=== PATIENT | female | born 2000 | race Caucasian/White ===

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

== ENCOUNTER 2023-04-20 19:50 | Emergency (ER) | payer OTHER ==
--- OUTSIDE RECORDS SUMMARY | 2023-04-20 19:53 | XMS REPORT | Continuity of Care Document ---
Author Name Unknown Address [phone] [facility] thconnect Address [address] [phone] Care Team Providers Care Lead Applications Developer Name Role Phone LIANNE CUI Primary Care Physician Unavailab MAYURI Ashraf Attending Clinician Unavailable Oscar_Pneelope Attending Clinician Unavailable KEILY ORDOÑEZ Attending Clinician Unavailable [email or web address]_S Attending Clinician UnavailDR LIANNE [place] Attending Clinician Unavailable [phone] Attending Clinician Unavailable Oscar_Penelope Admitting Clinician Unavailable [email or web address] Admitting Clinician UnavailDR LIANNE [place] Admitting Clinician Unavailable Payers Payer Name Policy Type Policy Number Effective Date Expirati on Date Source AET[employer] - CLINIC [id number] [employer]ET[employer] - CHOICE (POS II) [id number] 2006 00:00:00 Problems Condition Name Condition Details Condition Category Status Onset Date Resolution Date Last Treatment Date Treating Clinician Comments Source Mild hyperemesi s gravidarum Mild Hyperemesi s Gravidarum Problem Active 04-12 00:00: 00 [facility] Problem Active 04-12 00:00: 00 [facility] Allergies, Adverse Reactions, Alerts Allergy Name Allergy Type Status Severity Reaction(s) Onset Date Inactive Date Treating Clinician Comments Source No Known Drug Allergie s [facility] Social History Smoking Status Start Date Stop Date Source Never Smoker [facility] Medications Ordered Medication Name Filled Medication Name Start Date Stop Date Current Medication? Ordering Clinician Indication Dosage Frequency Signature (SIG) Comments Components Source ondansetron HCl 4 mg tablet TAKE 1 TABLET BY MOUTH EVERY 6 TO 8 HOURS NEEDED FOR NAUSEA / VOMITING ondansetron HCl 4 mg tablet TAKE 1 TABLET BY MOUTH EVERY 6 TO 8 HOURS NEEDED FOR NAUSEA / VOMITING No ondansetro n HCl 4 mg tablet TAKE 1 TABLET BY MOUTH EVERY 6 TO 8 HOURS NEEDED FOR NAUSEA / VOMITING [facility] Vital Signs Vital Name Observation Time Observation Value Comments S ource BP Diastolic 2023-04-12 00:00:00 84 mm[Hg] [facility] Body Weight 2023-04-12 00:00:00 174.7 [lb_av] [facility] Systolic 2023-04-12 00:00:00 144 mm[Hg] [facility] Height 2023-04-12 00:00:00 63 [in_i] [facility] BMI (Body Mass Index) 2023-04-12 00:00:00 30.9 kg/m2 [facility] Procedures Procedure Date / Time Performed Performing Clinician Source ULTRASOUND, UTERUS REAL TIME WITH IMAGE DOCUMENTAITON, TRANSVAGINAL 2023-04-12 00:00:00 [facility] Plan of Care Planned Activity Planned Date Details Comments Source Diagnostic Test Pending 2023-04-12 00:00:00 HIV (1+2) Ab screen, serum [code = HIV (1+2) Ab screen, serum] [facility] Diagnostic Test Pending 2023-04-12 00:00:00 RPR (rapid plasma reagin), serum [code = RPR (rapid plasma reagin), serum] [facility] Diagnostic Test Pending 2023-04-12 00:00:00 HBsAg (hepatitis B surface Ag), serum [code = HBsAg (hepatitis B surface Ag), serum] [facility] Diagnostic Test Pending 2023-04-12 00:00:00 CBC w/ auto diff [code = CBC w/ auto diff] [facility] Diagnostic Test Pending 2023-04-12 00:00:00 Blood group antibody screen [Presence] in Serum or Plasma [code = 890-4] [facility] Diagnostic Test Pending 2023-04-12 00:00:00 ABO and Rh group panel - Blood [code = 24750-5] [facility] Diagnostic Test Pending 2023-04-12 00:00:00 drug screen, urine [code = drug screen, urine] [facility] Diagnostic Test Pending 2023-04-12 00:00:00 HbA1c (hemoglobin A1c), blood [code = HbA1c (hemoglobin A1c), blood] [facility] Diagnostic Test Pending 2023-04-12 00:00:00 culture, urine [code = culture, urine] [facility] Diagnostic Test Pending 2023-04-12 00:00:00 rubella Ab, titer, serum [code = rubella Ab, titer, serum] [facility] Diagnostic Test Pending 2023-04-12 00:00:00 STI panel [code = STI panel] [facility] Diagnostic Test Pending 2023-04-12 00:00:00 urinalysis, dipstick [code = urinalysis, dipstick] [facility] Diagnostic Test Pending 2023-04-12 00:00:00 pap, LB + reflex to HR HPV if ASC-U [code = pap, LB + reflex to HR HPV if ASC-U] [facility] Future Appointment 2023-04-26 11:15:00 Mayuri Moore, [address]; [address], [place] [address] [facility] Future Appointment 2023-04-26 11:00:00 Sonogram, [address]; [address], [place] [address] [facility] Instructions [facility] Encounters Start Date/Time End Date/Time Encounter Type Admission Type Attending Clinicians Care Facility Care Department Encounter ID Source 2022-07-04 08:43:31 Outpatient [facility] [id number] [facility] 2023-04-12 12:06:00 2023-04-12 12:06:00 Outpatient MAYURI JUAREZ [facility] [id number] [facility] 2023-04-12 00:00:00 2023-04-12 00:00:00 [facility] [id number] [facility] 2023-04-12 00:00:00 2023-04-12 00:00:00 Mayuri CHRISTY MooreP-BC: [address], [address], [place] [address] , Ph. [phone] [facility] [id number] [facility] 2023-03-28 00:00:00 2023-03-28 00:00:00 Outpatient Charles [facility] [id number] [facility] 2023-03-23 23:05:00 2023-03-24 03:50:00 Emergency ER KEILY ORDOÑEZ [facility] [id number] [facility] 2023-03-23 23:05:00 2023-03-24 03:50:00 emergency [facility] [id number] 2023-01-04 00:00:00 2023-01-04 00:00:00 Outpatient [email or web address]_Ka diyala_S PRIV [facility] [id number] [facility] 2022-07-04 11:39:00 2022-07-04 11:39:00 Outpatient LIANNE MIRANDA [id number] [facility] [id number] [facility] 2022-07-04 08:47:00 2022-07-04 09:25:00 Outpatient LIANNE FERNANDEZ [id number] [facility] [id number] [facility] Results Test Description Test Time Test Comments Results Result Co mments Source [facility]
[2023-04-20 21:12] LABS: Specific Gravity 1.017 (1.005-1.030)
[2023-04-20 21:15] LABS: Absolute Basophils 0.1 K/uL (0-0.5); Absolute Eosinophils 0.2 K/uL (0-0.5); Absolute Lymphocytes (CBC) 2.1 K/uL (0.7-4.9); Absolute Monocytes 0.7 K/uL (0.1-1.3); Absolute Neutrophil 6.9 K/uL (1.8-8.0); Basophils % 0.5 % (0-1.3); Eosinophils % 1.6 % (0-4.4); Hematocrit 34.6 % (36.0-45.0); Hemoglobin 11.7 g/dL (12.0-15.0); Lymphocytes % 21.5 % (15.3-44.8); MCH 25.6 pg (27.0-35.0); MCHC 33.7 g/dL (32.0-36.0); MCV 75.8 fL (80-100); MPV 7.4 fL (7.6-11.3); Monocytes % 7.2 % (3.3-12.3); Neutrophils % 69.2 % (41.7-73.7); Platelets 374 thou/uL (152-406); RBC Red Blood Cell Count 4.56 M/uL (3.86-4.86); Red Cell Distribution Width 15.5 % (12.1-15.2)
[2023-04-20 21:17] LABS: Anion Gap 8.8 mEq/L (5.0-15.0); Potassium 3.8 mEq/L (3.5-5.1)
--- NOTE | 2023-04-20 22:06 | RAD REPORT ---
EXAM DESCRIPTION: US - Transvaginal OB - 04/20/2023 9:47 pm CLINICAL HISTORY: VAGINAL BLEEDING COMPARISON: No comparisons FINDINGS: Gestational sac identified with mean sac diameter of 1.2 cm. Yolk sac identified. No pole identified. Uterus measures 8.3 x 3.6 x 5.1 cm with volume of 80 cc . The right ovary measures 3.5 x 2 x 2.5 cm w ith volume of 9.2 cc. The left ovary measures 3 x 2 x 2.1 cm with volume of 7 cc. Bilateral ovarian b lood flow present. Corpus luteum in the right ovary. IMPRESSION: Gestational sac and yolk sac identified consistent with an IUP measuring 6 weeks 1 day w ith JAZMINE of 02/15/2023. No pole or heart tones identified likely due to early dates. Bilateral ovarian blood flow.
--- NOTE | 2023-04-20 23:33 | ER ---
Nurse's Notes [facility] Name: Bertha Teresa Age: 22 yrs Sex: Female : 2000 Arrival Date: 04/20/2023 Time: 19:50 Bed 5 Private MD: Diagnosis: Threatened Presentation: 04/20 20:34 Chief complaint: Patient states: Brown vaginal discharge onset yesterday and vaginal cm10 bleeding got worse today. Pt reports abdominal cramping. Coronavirus screen: Vaccine status: Patient reports being unvaccinated. Client denies travel out of the [place] in the last 14 days. Ebola Screen: Patient denies travel to an Ebola-affected area in the 21 days before illness onset. No symptoms or risks identified at this time. Initial Sepsis Screen: Does the patient meet any 2 criteria? No. Patient's initial sepsis screen is negative. Does the patient have a suspected source of infection? No. Patient's initial sepsis screen is negative. Risk Assessment: Do you want to hurt yourself or someone else? Patient reports no desire to harm self or others. Onset of symptoms was April 20, 2023. 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 - Social history:: Smoking status: Reported history of juuling and/or vaping. Screenin:55 [facility] ED Fall Risk Assessment (Adult) History of falling in the last 3 months, lg3 including since admission No falls in past 3 months (0 pts). Abuse screen: Denies threats or abuse. Denies injuries from another. Nutritional screening: No deficits noted. Tuberculosis screening: No symptoms or risk factors identified. Assessment: 20:55 General: Appears in no apparent distress. comfortable, Behavior is calm, cooperative. lg3 Pain: Denies pain. Neuro: No deficits noted. Guadalupe Agitation-Sedation Scale (RASS): 0 - Alert and Calm Level of Consciousness is awake, alert, obeys commands, Oriented to person, place, time, situation. Cardiovascular: No deficits noted. Denies chest pain, shortness of breath, Heart tones S1 S2 present Capillary refill < 3 seconds Clubbing of nail beds is absent JVD is absent Patient's skin is warm and dry. Respiratory: No deficits noted. Airway is patent Respiratory effort is even, unlabored, Respiratory pattern is regular, symmetrical. GI: No deficits noted. Abdomen is round non-distended, Bowel sounds present X 4 quads. : Reports discharge, bloody, vaginal bleeding that is bright red, light flow. EENT: No deficits noted. No signs and/or symptoms were reported regarding the EENT system. Derm: No deficits noted. No signs and/or symptoms reported regarding the dermatologic system. Skin is intact, is healthy with good turgor, Skin is dry, Skin is normal, Skin temperature is warm. Musculoskeletal: No deficits noted. No signs and/or symptoms reported regarding the musculoskeletal system. Circulation, motion, and sensation intact. Range of motion: intact in all extremities. 21:27 Reassessment: Patient appears in no apparent distress at this time. No changes from lg3 previously documented assessment. Patient and/or family updated on plan of care and expected duration. Pain level reassessed. Patient is alert, oriented x 3, equal unlabored respirations, skin warm/dry/pink. 23:08 Reassessment: Patient appears in no apparent distress at this time. No changes from lg3 previously documented assessment. Patient and/or family updated on plan of care and expected duration. Pain level reassessed. Patient is alert, oriented x 3, equal unlabored respirations, skin warm/dry/pink. Patient states symptoms have improved. 23:34 General: PT to discharge post RhoGAM administration. lab notified of order. lg3 04/21 00:06 General: contacted lab for expected wait time. per Lab, will call when ready. lg3 00:23 General: contacted lab for expected wait time of RhoGAM. per lab, will be sending lg3 shortly. 00:29 Reassessment: Patient appears in no apparent distress at this time. No changes from lg3 previously documented assessment. Patient and/or family updated on plan of care and expected duration. Pain level reassessed. Patient is alert, oriented x 3, equal unlabored respirations, skin warm/dry/pink. Patient denies pain at this time. Vital Signs: 04/20 20:34 BP 129 / 93; Pulse 86; Resp 18; Temp 97.3; Pulse Ox 99% on R/A; Weight 79.38 kg; Height cm10 5 ft. 0 in. ; Pain 0/10; 23:08 BP 125 / 89; Pulse 81; Resp 17 S; Pulse Ox 99% on R/A; lg3 04/21 00:29 BP 127 / 88; Pulse 84; Resp 17 S; Temp 97.9(O); Pulse Ox 100% on R/A; lg3 04/20 20:34 Body Mass Index 34.18 (79.38 kg, 152.4 cm) cm10 04/20 20:34 Pain Scale: Adult cm10 ED Course: 04/20 19:52 Patient arrived in ED. ag3 19:58 Wally Darnell DO is Attending Physician. ms3 20:35 Triage completed. cm10 20:36 Arm band placed on Patient placed in an exam room, on a stretcher. cm10 20:55 Patient has correct armband on for positive identification. Placed in gown. Bed in low lg3 position. Call light in reach. Side rails up X 1. Client placed on continuous cardiac and pulse oximetry monitoring. NIBP monitoring applied. Door closed. Noise minimized. Warm blanket given. Family accompanied patient. 20:55 Inserted saline lock: 22 gauge in left antecubital area, using aseptic technique. Blood lg3 collected. Patient maintains SpO2 saturation greater than 95% on room air. 20:57 Abo/rh Typing Sent. lg3 20:57 Basic Metabolic Panel Sent. lg3 20:57 CBC with Diff Sent. lg3 20:57 Test, Urine Sent. lg3 21:49 US Transvaginal Ob In Process Unspecified. EDMS 23:08 Sandy Coronado, RN is Primary Nurse. lg3 04/21 00:28 No provider procedures requiring assistance completed. IV discontinued, intact, lg3 bleeding controlled, No redness/swelling at site. Pressure dressing applied. Administered Medications: 00:28 Drug: Rho D Immune Globulin IM 50 mcg IM once Route: IM; Site: right deltoid; lg3 00:30 Follow up: Response: No adverse reaction lg3 Medication: 00:30 VIS not applicable for this client. lg3 Point of Care Testing: Urine : 00:30 hCG Reading: Positive; lg3 Outcome: 04/20 23:33 Discharge ordered by ms3 04/21 00:28 Discharged to home ambulatory, with significant other, lg3 Condition: stable Discharge instructions given to patient, Instructed on discharge instructions, follow up and referral plans. Demonstrated understanding of instructions, follow-up care, 00:31 Patient left the ED. lg3 Signatures: Dispatcher [employer] EDMS Marisela Aguilar 3 Sandy Coronado, RN RN lg3 Wally Darnell DO DO ms3 Tammy Quinones, RN RN cm10 Corrections: (The following items were deleted from the chart) 04/20 20:36 20:36 1, LMP 02/15/2023, unknown cm10 cm10 04/21 00:22 04/20 23:34 General: PT to discharge post RhoGAM administration. . lg3 lg3
--- NOTE | 2023-04-20 23:34 | EDPHYS ---
Physician Documentation [facility] Name: Bertha Teresa Age: 22 yrs Sex: Female : 2000 Arrival Date: 04/20/2023 Time: 19:50 Bed 5 Private MD: ED Physician Wally Darnell HPI: 04/21 00:12 This 22 yrs old Female presents to ER via Wheelchair with complaints of Vaginal ms3 Bleeding, + Preg <12wks. 00:12 22-year-old female with no past medical history presents to the emergency department ms3 for vaginal spotting that began today. Patient noted she had brown discharge yesterday. Patient states symptoms began 3 hours prior to arrival. Patient rates her lower abdominal cramping a 08/18. Patient states her last menstrual period was 02/15/2023. Patient is G1, P0.. 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 - Social history:: Smoking status: Reported history of juuling and/or vaping. ROS: 04/21 00:12 Constitutional: Negative for fever, and chills. Neck: Negative for injury, pain, and ms3 swelling, Cardiovascular: Negative for chest pain, and palpitations. Respiratory: Negative for shortness of breath, cough, wheezing, and pleuritic chest pain, Abdomen/GI: Negative for abdominal pain, nausea, vomiting, diarrhea, and constipation, : Positive for vaginal bleeding, Exam: 00:12 Constitutional: This is a well developed, well nourished patient who is awake, alert, ms3 and in no acute distress. Head/Face: Normocephalic, atraumatic. Neck: Trachea midline, no cervical lymphadenopathy. Supple, full range of motion without nuchal rigidity, or vertebral point tenderness. No Meningismus. Chest/axilla: Normal chest wall appearance and motion. Nontender with no deformity. Cardiovascular: Regular rate and rhythm with a normal S1 and S2. No gallops, murmurs, or rubs. Normal PMI, no JVD. No pulse deficits. Respiratory: Lungs have equal breath sounds bilaterally, clear to auscultation and percussion. No rales, rhonchi or wheezes noted. No increased work of breathing, no retractions or nasal flaring. Abdomen/GI: Soft, non-tender, with normal bowel sounds. No distension or tympany. No guarding or rebound. No evidence of tenderness throughout. Vital Signs: 04/20 20:34 BP 129 / 93; Pulse 86; Resp 18; Temp 97.3; Pulse Ox 99% on R/A; Weight 79.38 kg; Height cm10 5 ft. 0 in. ; Pain 0/10; 23:08 BP 125 / 89; Pulse 81; Resp 17 S; Pulse Ox 99% on R/A; lg3 04/21 00:29 BP 127 / 88; Pulse 84; Resp 17 S; Temp 97.9(O); Pulse Ox 100% on R/A; lg3 04/20 20:34 Body Mass Index 34.18 (79.38 kg, 152.4 cm) cm10 04/20 20:34 Pain Scale: Adult cm10 MDM: 04/20 20:45 Patient medically screened. ms3 04/21 00:12 Differential diagnosis: threatened Ab, complete Ab. Data reviewed: vital signs, nurses ms3 notes, lab test result(s), radiologic studies, and as a result, I will discharge patient. I considered the following discharge prescriptions or medication management in the emergency department Medications were administered in the Emergency Department. See MAR. Counseling: I had a detailed discussion with the patient and/or guardian regarding the historical points, exam findings, and any diagnostic results supporting the discharge/admit diagnosis, lab results, radiology results, the need for outpatient follow up, to return to the emergency department if symptoms worsen or persist or if there are any questions or concerns that arise at home. Special discussion: I discussed with the patient/guardian in detail that at this point there is no indication for admission to the hospital. It is understood, however, that if the symptoms persist or worsen the patient needs to return immediately for re-evaluation. ED course: Discussed labs, ultrasound with patient and her boyfriend. Patient to follow-up with GAS BURNER OPERATOR in 2 to 3 days. Patient understands agrees with plan. All questions were answered. Return precautions discussed include worsening symptoms, or any other concerns. On reevaluation patient is alert and oriented x 4, no apparent distress, nontoxic-appearing, ambulatory emergency primary, speaking full sentences. 04/20 20:34 Order name: Abo/rh Typing cm10 04/20 20:34 Order name: Basic Metabolic Panel; Complete Time: 21:41 cm10 04/20 20:34 Order name: CBC with Diff; Complete Time: 21:41 cm10 04/20 20:34 Order name: Test, Urine; Complete Time: 21:41 cm10 04/20 21:42 Order name: Quantitative Hcg; Complete Time: 22:35 ms3 04/20 22:19 Order name: ABO/RH no charge EDMS 04/20 23:57 Order name: Rhogam EDMS 04/20 20:34 Order name: US Transvaginal Ob; Complete Time: 22:10 cm10 04/20 20:34 Order name: IV Saline Lock; Complete Time: 20:57 cm10 04/20 20:34 Order name: Labs collected and sent; Complete Time: 20:57 cm10 04/20 20:34 Order name: NPO; Complete Time: 20:45 cm10 Administered Medications: 00:28 Drug: Rho D Immune Globulin IM 50 mcg IM once Route: IM; Site: right deltoid; lg3 00:30 Follow up: Response: No adverse reaction lg3 Point of Care Testing: Urine : 00:30 hCG Reading: Positive; lg3 Disposition Summary: 04/20/23 23:33 Discharge Ordered Notes: Location: Home ms3 Condition: Stable ms3 Diagnosis - Threatened ms3 Followup: ms3 - With: Private Physician - When: 2 - 3 days - Reason: Recheck today's complaints Discharge Instructions: - Discharge Summary Sheet ms3 - Threatened Miscarriage ms3 Forms: - Medication Reconciliation Form ms3 - Thank You Letter ms3 - Antibiotic Education ms3 - Prescription Opioid Use ms3 - Patient Portal Instructions ms3 - Leadership Thank You Letter ms3 Signatures: Dispatcher [employer] Sandy Rodriguez RN RN lg3 Wally Darnell DO DO ms3 Tammy Quinones RN RN cm10
== END 2023-04-21 00:31 | disposition home or self-care (01) ==
LOC: ER 19:50
DX: O20.0 Threatened abortion (principal)
CPT/HCPCS: 85025; 80048; 36415; 86900; 86850; 81025; 86901 ×2; 84702; 76817; 96372; 99285; J2790